=== PATIENT | male | born 1935 | race Two or more races ===

== ENCOUNTER → 2017-04-11 | Day surgery (SDC) | payer OTHER ==
[~2017-04-11] MED LIST: CARV3.12 PO; CEFT2INJ IV; ENAL5TAB PO; FURO40TA PO; JANT4TAB PO; K-TA10TA5 PO; LACTATED RINGER'S 1000 ML INJ 1,000 ML ONE; LEVA500T PO; LORTA5 PO; METR-1 PO; PROPOFOL 500 MG/50 ML BTL IV ONE; SIMV20TA OR; Z.0.COMMODE-3:1; Z.0.WALKERFRONT
--- NOTE | 2017-04-11 14:04 | GIPROC ---
[facility] [address] [facility] [place], [address] EGD PROCEDURE REPORT EXAM DATE: 04/11/2017 PATIENT NAME: Patrice Rodriguez MR #: [id number] BIRTHDATE: 1935 ATTENDING: Liss Puri MD ORDER #: [id number] ELASTIC ATTACHER COVERSTITCH: Tracey Wise RN STATUS: outpatient INDICATIONS: The patient is a 81 yr old male here for an EGD due to heme positive stool PROCEDURE PERFORMED: EGD w/ biopsy MEDICATIONS: None and Per Anesthesia. TOPICAL ANESTHETIC: CONSENT: The patient understands the risks and benefits of the procedure and understands that these risks include, but are not limited to: sedation, allergic reaction, infection, perforation and/or bleeding. Alternative means of evaluation and treatment include, among others: physical exam, x-rays, and/or surgical intervention. The patient elects to proceed with this endoscopic procedure. medical equipment was checked for proper function. Hand hygiene and appropriate measures for infection prevention was taken. After the risks, benefits and alternatives of the procedure were thoroughly explained, Informed consent was verified, confirmed and timeout was successfully executed by the treatment team. The patient was anesthetized with topical anesthesia and the EC-3890Li ([id number]) endoscope was introduced through the mouth and advanced to the second portion of the duodenum. Retroflexed views revealed no abnormalities The gastroscope was then slowly withdrawn and removed. ESOPHAGUS: The mucosa of the esophagus appeared normal. STOMACH: There was erythematous moderate gastritis in the gastric antrum. A biopsy was performed using cold forceps. Sample sent for histology. DUODENUM: The duodenal mucosa appeared normal. ADVERSE EVENTS: There were no complications. IMPRESSIONS: 1. The esophagus appeared normal 2. There was erythematous gastritis in the gastric antrum; biopsy was performed 3. Normal duodenal mucosa 4. Retroflexed views revealed no abnormalities RECOMMENDATIONS: 1. Await biopsy results. Biopsy results will not be ready for 7-10 days. If you don't hear from us in two weeks, call our office for biopsy results. 2. Anti-reflux regimen 3. Continue PPI 4. Avoid NSAIDS PATIENT CONDITION: stable DISPOSITION: Home REPEAT EXAM: Return as needed for EGD pending biopsy results Liss Puri MD eSigned: Liss Puri MD 04/11/2017 2:03 PM cc: Wes Jose M.D. PATIENT NAME: Patrice Rodriguez MR#: [id number]
--- NOTE | 2017-04-11 14:19 | GIPROC ---
[facility] [address] [facility], [address] COLONOSCOPY PROCEDURE REPORT EXAM DATE: 04/11/2017 PATIENT NAME: Patrice Rodriguez MR #: [id number] BIRTHDATE: 1935 ENDOSCOPIST: Liss Puri MD ORDER #: [id number] AUXILIARY ENGINEER: Tracey Wise RN STATUS: outpatient INDICATIONS: The patient is a 81 yr old male here for a colonoscopy due to occult blood PROCEDURE PERFORMED: Colonoscopy with polypectomy MEDICATIONS: None and Per Anesthesia. PREP QUALITY: The [place] Bowel Prep Score was Right colon 2, Mid colon 3, and Left colon 3. Total = 8. ESTIMATED BLOOD LOSS: None CONSENT: The patient understands the risks and benefits of the procedure and understands that these risks include, but are not limited to: sedation, allergic reaction, infection, perforation and/or bleeding. Alternative means of evaluation and treatment include, among others: physical exam, x-rays, and/or surgical intervention. The patient elects to proceed with this endoscopic procedure. medical equipment was checked for proper function. Hand hygiene and appropriate measures for infection prevention was taken. After the risks, benefits and alternatives of the procedure were thoroughly explained, Informed consent was verified, confirmed and timeout was successfully executed by the treatment team. A digital exam revealed external hemorrhoids The EC-3890Li ([id number]) endoscope was introduced through the anus and advanced to the cecum, which was identified by both the appendix and ileocecal valve. The instrument was then slowly withdrawn as the colon was fully examined. COLON FINDINGS: Moderate diverticulosis was noted in the sigmoid colon. No bleeding was noted from the diverticulosis. A polypoid shaped pedunculated polyp ranging between 3-7mm in size was found in the sigmoid colon. A polypectomy was performed using snare cautery. The resection was complete and the polyp tissue was completely retrieved. Retroflexed views revealed internal hemorrhoids and Retroflexed views revealed medium internal hemorrhoids The scope was then completely withdrawn from the patient and the procedure terminated. PROCEDURE WITHDRAWAL TIME:8minutes ADVERSE EVENTS: There were no complications. IMPRESSIONS: 1. Moderate diverticulosis was noted in the sigmoid colon 2. A pedunculated polyp ranging between 3-7mm in size was found in the sigmoid colon; polypectomy was performed using snare cautery 3. Retroflexed views revealed internal hemorrhoids 4. Retroflexed views revealed medium internal hemorrhoids 5. Revealed external hemorrhoids RECOMMENDATIONS: 1. Await biopsy results. Biopsy results will not be ready for 7-10 days. If you don't hear from us in two weeks, call our office for results. 2. Benefiber 2 tsp daily 3. Continue surveillance 4. Yearly hemoccult 5. High fiber diet 6. No seeds, nuts and popcorn in diet RECALL: Return 3 years Colonoscopy, pending biopsy results Liss Puri MD eSigned: Liss Puri MD 04/11/2017 2:19 PM cc: Robbie Montes [facility] Rosario and Jakob Calderon M.D. PATIENT NAME: Patrice Rodriguez MR#: [id number]
== END | disposition home or self-care (01) ==
LOC: ESDC 11:40
PROVIDERS: ATTEND Internal Medicine Gastroenterology
DX: K92.1 Melena (principal); K57.90 Diverticulosis of intestine, part unspecified, without perforation or abscess without bleeding; D12.5 Benign neoplasm of sigmoid colon; K64.4 Residual hemorrhoidal skin tags; K64.8 Other hemorrhoids; K29.70 Gastritis, unspecified, without bleeding
CPT/HCPCS: 00740; 00810; 43239; 45385; 88305; 88312; J3010; J7120